=== PATIENT | female | born 1970 | race Hispanic/Latino ===

== ENCOUNTER 2020-06-08 14:22 | Outpatient (CLI) | payer OTHER ==
--- NOTE | 2020-06-08 15:28 | MRI ---
MR OF THE LEFT KNEE WITHOUT CONTRAST INDICATION: Left knee medial meniscal tear TECHNIQUE: Axial and coronal PD fat sat, sagittal T2 fat sat, sagittal PD turbo spin echo and T1 katerina nal images were obtained of the left knee. COMPARISON: None. FINDINGS: Joint effusion: None. Semimembranosus-medial gastrocnemius popliteal cyst: None. Ligaments: The ACL, PCL, MCL and LCLC are intact. Extensor mechanism: Intact. Menisci: There is a complex multidirectional tear involving the body and posterior junction of the me dial meniscus with a prominent, near full-thickness, radial component involving the posterior junction. There is partial extrusion of the medial meniscus. Lateral meniscus is intact. Articular cartilage: There is diffuse moderate to severe chondral thinning involving the medial femor al tibial joint compartment. There is moderate chondrosis involving the patella and lateral femoral tibial joint compartment. There are small marginal osteophytes affecting all major compartments. Osseous structures: Normal marrow signal. Popliteus and IT band: Normal. IMPRESSION: 1. Mild osteoarthrosis of the left knee. 2. Medial meniscal tear.
== END 2020-06-08 14:23 | disposition home or self-care (01) ==
LOC: BICMRI 14:22
PROVIDERS: ATTEND Orthopaedic Surgery
DX: S83.242A Other tear of medial meniscus, current injury, left knee, initial encounter (principal); M17.12 Unilateral primary osteoarthritis, left knee